=== PATIENT | female | born 1975 | race Caucasian/White ===

== ENCOUNTER → 2016-06-24 | Outpatient (CLI) | payer OTHER | LOC: RAD 10:17 | DX: M25.562 Pain in left knee (principal) | CPT/HCPCS: 73562 ==

== ENCOUNTER → 2021-10-28 | Outpatient (CLI) | payer OTHER ==
[~2021-10-28] MED LIST: AUGMENTIN 875-1 EACH PO
== END ==
LOC: KOH-I 13:10
DX: M25.561 Pain in right knee (principal)
CPT/HCPCS: 73562